=== PATIENT | male | born 2005 | race Two or more races ===

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

== ENCOUNTER 2024-10-27 11:55 | Emergency (ER) | payer OTHER ==
[~2024-10-27] VITALS: Ht 172.7 cm; Wt 56.7 kg
[2024-10-27] MEDS ORDERED: TEARS LUBRICANT15 ML OP (13:57)
[2024-10-27] MEDS ORDERED: NEO-POLY-DEXAMET5 ML OP (13:57)
[2024-10-27] MEDS ORDERED: ALL DAY ALLERGY10 M3 PO (13:57)
== END 2024-10-27 14:29 | disposition home or self-care (01) ==
LOC: ER 11:56
DX: H10.89 Other conjunctivitis (principal)